=== PATIENT | male | born 2000 | race Caucasian/White ===

== ENCOUNTER 2023-11-02 18:30 | Emergency (ER) | payer BC, SELFPAY ==
--- NOTE | ~2023-11-02 | XR_ITS ---
EXAMINATION: XR chest 2V Exam Date/Time: 11/02/2023 18:50 DISTRIBUTING CLERK HISTORY: cough x's 3 weeks/crackles at base of lungs Comparison: 01/04/2012. RESULT: Lines, tubes, and devices: None. Lungs and pleura: Mild diffuse reticular opacities with cuffing. Streaky bibasilar opacities. No foc al consolidation, effusion, or pneumothorax Cardiomediastinal silhouette: Stable. Other: No acute osseous or upper abdominal finding. IMPRESSION: Diffuse pulmonary opacities may represent respiratory bronchiolitis in the appropriate clinical jona xt. Minimal, streaky bibasilar subsegmental atelectasis/consolidation. Reviewed, dictated and finalized at location K. RIBUTING CLERK IMPRESSION: Diffuse pulmonary opacities may represent respiratory bronchiolitis in the appr opriate clinical context. Minimal, streaky bibasilar subsegmental atelectasis/c onsolidation.
--- NOTE | 2023-11-02 18:41 | ED.URI ---
HPI - URI/Sore Throat General Chief Complaint: Upper Respiratory Infection Stated Complaint: cough Time Seen by Provider: 11/02/23 18:41 Source: patient Mode of arrival: ambulatory Limitations: no limitations History of Present Illness HPI Narrative: Johann is a 22-year-old male patient presenting to the clinic today with complaints of a cough x3 weeks.. He reports cough is productive at times with some yellow phlegm. Denies any nasal drainage, sore throat, fever, chills, body aches, chest pain, or shortness of breath MD elicited complaint: sore throat and nasal congestion Related Data Allergies Allergy/AdvReac Type Severity Reaction Status Date / Time No Known Allergies Allergy Mild Verified 11/02/23 18:36 Review of Systems Review of Systems: Pertinent positives per HPI. Patient denies any fever, chills, rash, headache, visual changes, dizziness, shortness of breath, chest pain, palpitations, nausea, vomiting, diarrhea, constipation, abdominal pain, or any urinary issues. PMFSH Social History Social History Smoking status: Never smoker Alcohol intake: never Comments At the time of my signature, I reviewed and agree with the nursing past medical, surgical, social, and family history. There is no relevant family history pertinent to the patient complaint. Exam Narrative: General: Well-developed, well nourished, in no apparent distress Head: Normocephalic, atraumatic Eyes: Pupils equally round and reactive to light bilaterally, EOM intact, sclera and conjunctive clear, no discharge, lids normal Ears: TMs intact and clear, ear canals clear, no drainage, grossly hearing normal. Nose: Nares patent, no discharge, no inflammation, no sinus tenderness. Mouth: Oral pharynx without lesions or masses, good dentition, MMM. Neck: Supple, trachea midline, no enlargement of anterior or posterior cervical nodes, no thyroid masses or goiter palpable. Cardio: Regular rate and rhythm, s1 and s2 normal, no murmur appreciated. Resp: Crackles heard over the left lower lobe, no rhonchi, wheezing, or rubs Course Course Emergency Course: Portions of this record may have been created with voice recognition software. Level of Care: Express Care Visit Vital Signs Vital signs: Vital signs reviewed MDM - URI/Sore Throat MDM Narrative Medical decision making narrative: At the time of visit patient is resting comfortably on the exam table. Patient appears to be nontoxic. Chest x-ray was performed and shows bronchiolitis. Supportive measures were discussed with the patient and they voiced understanding discharge instructions and agrees to treatment plan. Return precautions reviewed Differential Diagnosis Differential diagnosis: Likely upper respiratory infection, otitis media, sinusitis, viral infection, bronchitis, influenza, pharyngitis and other Imaging Data Radiologist's impression: ITS Impressions Chest X-Ray 11/02/23 19:17 IMPRESSION: Diffuse pulmonary opacities may represent respiratory bronchiolitis in the appropriate clinical context. Minimal, streaky bibasilar subsegmental atelectasis/consolidation. Discharge Plan Discharge Clinical Impression: Bronchitis Patient Disposition: Home, Self-Care Condition: Stable Instructions: Antibiotic Form, Acute Bronchitis (ED) Additional Instructions: Chest x-ray shows likely bronchiolitis Take prescription medications only as prescribed-prednisone, azithromycin, Tessalon Perles, and albuterol inhaler Increase fluids and stay well hydrated Tylenol/motrin for pain/fever Flonase and OTC antihistamines as directed Vicks vapor rub to open sinuses Sinus rinses for congestion Cepacol spray, cough drops, throat lozenges, warm tea with honey/lemon, gargle salt water to soothe throat BRAT diet for diarrhea Clear liquids x 24 hours then advance as tolerated for nausea/vomitin
[2023-11-02 18:46] VITALS: BP 145/88; PULSE 86; RESP 16; TEMP 36.2; O2SAT 96
== END 2023-11-02 19:27 | disposition home or self-care (01) ==
PROVIDERS: Emergency Provider Nurse Practitioner Family; PCP Family Medicine
DX: J40 Bronchitis, not specified as acute or chronic (principal)
CPT/HCPCS: 71046; 99213; G0463